=== PATIENT | female | born 1975 | race Caucasian/White ===

== ENCOUNTER 2016-07-04 18:55 | Inpatient (IN) | payer OTHER ==
[~2016-07-04] VITALS: Ht 160 cm; Wt 86.0 kg
[~2016-07-04 18:55] MED LIST: [UNRECOGNIZED DRUG - CODE] PO
[2016-07-04] MEDS ORDERED: RINGERS SOLUTION,LACTATED 1,000 ML IV PRN (19:13)
[2016-07-04] MEDS ORDERED: OXYTOCIN 30 UNITS/LACT RINGERS 500 ML IV ONE (19:13)
[2016-07-04] MEDS ORDERED: METOCLOPRAMIDE HCL 5 MG/ML 2 ML VIAL IVP PRN (19:15)
[2016-07-04] MEDS ORDERED: CITRIC ACID/SODIUM CITRATE 30 ML SOLUTION UDCUP PO PRN (19:15)
[2016-07-04] MEDS ORDERED: FentaNYL CITRATE-PF 100 MCG/2 ML VIAL IVP PRN (19:15)
[2016-07-04 19:51] LABS: BASOPHILS % (AUTO) 0.5 % (0.0-2.0); EOSINOPHILS % (AUTO) 2.1 % (1.0-6.0); HEMATOCRIT 40.6 % (36-46); HEMOGLOBIN 13.4 g/dL (12.0-16.0); LYMPHOCYTES # (AUTO) 2.2 K/uL (1.0-4.8); LYMPHOCYTES % (AUTO) 18.8 % (22.0-44.0); MEAN CORPUSCULAR HEMOGLOBIN 29.7 pg (26.0-34.0); MEAN CORPUSCULAR HGB CONC 32.9 G/dL (31.0-37.0); MEAN CORPUSCULAR VOLUME 90 fL (80-100); MONOCYTES % (AUTO) 8.6 % (2.0-9.0); NEUTROPHILS # (AUTO) 8.3 K/uL (1.8-7.7); WHITE BLOOD COUNT (AUTO) 11.9 K/uL (4.5-11.0)
[2016-07-04] MEDS ORDERED: OXYGEN THERAPY IH SCH (20:00)
[2016-07-04 20:54] VITALS: BP 105/70
[2016-07-04] MEDS ORDERED: MISOPROSTOL 25 MCG TABLET VG SCH (21:00)
[2016-07-05] MEDS: RINGERS SOLUTION,LACTATED 1,000 ML IV SCH ×2 (02:02→02:23)
[2016-07-05] MEDS ORDERED: FentaNYL/BUPIV 0.125%/NS/PF 200 ML ED ONE (02:05)
[2016-07-05] MEDS ORDERED: LIDOCAINE HCL 2%/EPI 1:200,000/PF 10 ML VIAL ONE (02:05)
[2016-07-05] MEDS ORDERED: FentaNYL/BUPIV 0.125%/NS/PF 200 ML ED PRN (02:27)
[2016-07-05] MEDS ORDERED: DiphenhydrAMINE HCL 50 MG/ML VIAL IVP PRN (02:30)
[2016-07-05] MEDS ORDERED: PROMETHAZINE HCL 12.5 MG in SODIUM CHLORIDE 0.9% 50 ML IV PRN (02:30)
[2016-07-05] MEDS ORDERED: ONDANSETRON HCL 4 MG/2 ML VIAL IVP PRN (02:30)
[2016-07-05] MEDS ORDERED: NALBUPHINE HCL 10 MG/ML VIAL IVP PRN (02:30)
[2016-07-05] MEDS ORDERED: BENZOCAINE 20%/MENTHOL 56 GM SPRAY CANISTER TP PRN (03:45)
[2016-07-05] MEDS ORDERED: METHYLERGONOVINE MALEATE 0.2 MG TABLET PO PRN (03:45)
[2016-07-05] MEDS ORDERED: SENNA/DOCUSATE SODIUM 187-50 MG TABLET PO PRN (03:45)
[2016-07-05] MEDS ORDERED: MAGNESIUM HYDROXIDE SUSPENSION 30 ML UDCUP PO PRN (03:45)
[2016-07-05] MEDS ORDERED: OxyCODONE HCL/ACETAMINOPHEN 5-325 MG TABLET PO PRN ×2 (03:45)
[2016-07-05] MEDS ORDERED: GLYCERIN/WITCH HAZEL LEAF 40 PADS JAR TP PRN (03:45)
[2016-07-05] MEDS ORDERED: LANOLIN 7 GM OINTMENT TP PRN (03:45)
[2016-07-05] MEDS: IBUPROFEN 800 MG TABLET PO PRN ×2 (08:19→13:46)
[2016-07-06 06:41] LABS: BASOPHILS % (AUTO) 0.5 % (0.0-2.0); EOSINOPHILS % (AUTO) 4.1 % (1.0-6.0); HEMATOCRIT 40.4 % (36-46); HEMOGLOBIN 13.3 g/dL (12.0-16.0); LYMPHOCYTES # (AUTO) 2.7 K/uL (1.0-4.8); LYMPHOCYTES % (AUTO) 22.8 % (22.0-44.0); MEAN CORPUSCULAR HEMOGLOBIN 29.9 pg (26.0-34.0); MEAN CORPUSCULAR HGB CONC 32.8 G/dL (31.0-37.0); MEAN CORPUSCULAR VOLUME 91 fL (80-100); MONOCYTES # (AUTO) 0.9 K/uL (0.1-1.0); NEUTROPHILS # (AUTO) 7.6 K/uL (1.8-7.7); NEUTROPHILS % (AUTO) 64.6 % (40.0-70.0); RED BLOOD CELL COUNT(AUTO) 4.43 MIL/uL (4.00-5.20); RED CELL DISTRIBUTION WIDTH 14.5 % (11.5-14.5); WHITE BLOOD COUNT (AUTO) 11.8 K/uL (4.5-11.0)
[2016-07-06] MEDS ORDERED: IBUP-1547 PO (10:17)
== END 2016-07-06 11:10 | disposition home or self-care (01) | DRG 775 ==
LOC: OBSVTOIN 18:55 → 4S 18:55
PROVIDERS: ADMIT Specialist; ATTEND Specialist
PROC: 10E0XZZ Delivery of Products of Conception, External Approach (ICD-10-PCS; principal; 2016-07-05)
PROC: 3E0S3CZ (ICD-10-PCS; 2016-07-05)
PROC: 00HU33Z Insertion of Infusion Device into Spinal Canal, Percutaneous Approach (ICD-10-PCS; 2016-07-05)
DX: O69.81X0 Labor and delivery complicated by cord around neck, without compression, not applicable or unspecified (principal); Z3A.39 39 weeks gestation of pregnancy; Z37.0 Single live birth
CPT/HCPCS: J2590; J3490; J7120